=== PATIENT | female | born 1965 | race Caucasian/White ===

== ENCOUNTER 2021-06-22 13:47 | Outpatient (CLI) | payer BC ==
[2021-06-22 14:39] LABS: Bilirubin Neg (Negative); Blood, Urine 25 (Negative); Clarity Clear (Clear); Glucose, Urine (Dipstick) Normal (Negative); Ketone, Urine Negative (Negative); Leukocyte 25 (Negative); Nitrite Negative (Negative); Protein, Urine (Dipstick) Negative (Neg-Trace); Specific Gravity, Urine 1.015 (1.002-1.036); Urobilinogen Normal mg/dL (Less than 2)
[2021-06-22 14:41] LABS: Hemoglobin 13.6 g/dL (12.0-15.5); Mean Corpuscular HGB CONC 33.2 g/dL (32.0-36.0); Mean Corpuscular Hemoglobin 30.1 pg (27.0-33.0); Mean Corpuscular Volume 90.7 fl (81.6-98.3); Mean Platelet Volume 10.9 fl (7.4-10.4); Platelet Count 203 10x3/uL (150-450); RBC Distribution Width 12.7 % (11.5-14.5); Red Blood Cell (RBC) Count 4.52 10x6/uL (3.90-5.03); White Blood Cell (WBC) Count 9.2 10x3/uL (3.5-10.5)
[2021-06-24 08:53] LABS: SARS-CoV-2 PCR by NAA Not Detected (NotDetected)
== END 2021-06-22 13:48 | disposition home or self-care (01) ==
LOC: CSHLAB 13:47
PROVIDERS: ATTEND Obstetrics & Gynecology
DX: Z01.812 Encounter for preprocedural laboratory examination (principal); Z20.822 Contact with and (suspected) exposure to COVID-19; N81.6 Rectocele; N94.10 Unspecified dyspareunia
CPT/HCPCS: 81003; 85027; U0003; U0005

== ENCOUNTER 2021-06-25 05:45 | Observation (INO) | payer BC ==
[2021-06-15 14:24] VITALS: BMI 29.5
[2021-06-25] MEDS ORDERED: Bupivacaine 0.25% HCL 30 ML VIAL ONE (06:30)
[2021-06-25] MEDS ORDERED: EPINEPHrine 1 MG/ML AMP ONE ×2 (06:31→09:07)
[2021-06-25] MEDS ORDERED: Bupivacaine PF 0.5% 30 ML VIAL ONE ×2 (06:31→09:08)
[2021-06-25] MEDS ORDERED: Lidocaine 1% MPF 2 ML VIAL ONE (06:31)
[2021-06-25] MEDS ORDERED: Neomycin-Polymyxin 1 ML AMP ONE (06:32)
[2021-06-25] MEDS ORDERED: Midazolam HCl 2 mg/2 ml Vial ONE (06:33)
[2021-06-25] MEDS ORDERED: PROPOFOL 20 ML ONE (06:33)
[2021-06-25] MEDS ORDERED: Fentanyl 250 MCG/5 ML VIAL ONE (06:33)
[2021-06-25] MEDS ORDERED: Rocuronium Bromide 10 MG/ML (10ML VIAL) ONE (06:36)
[2021-06-25] MEDS ORDERED: Dexamethasone 4 mg/ml Vial ONE (06:36)
[2021-06-25] MEDS ORDERED: Ondansetron PF 4 MG/2 ML Vial ONE (06:36)
[2021-06-25] MEDS ORDERED: Lidocaine 1% PF 5 ML VIAL ONE (06:36)
[2021-06-25] MEDS ORDERED: Sodium Chloride 0.9% 100 ML ONE (06:59)
[2021-06-25] MEDS ORDERED: ePHEDrine Sulfate 50 MG/10 ML VIAL ONE (07:27)
[2021-06-25] MEDS ORDERED: Phenylephrine 10 MG/ML VIAL ONE (07:34)
[2021-06-25] MEDS ORDERED: Phenylephrine 40 MG/NS 250 ML 0 ML ONE (07:35)
[2021-06-25] MEDS ORDERED: Ketorolac Tromethamine 30 MG/ML VIAL ONE (10:50)
[2021-06-25] MEDS ORDERED: Fentanyl 100 MCG/2 ML VIAL ONE (10:58)
[2021-06-25] MEDS ORDERED: Promethazine HCl 25 MG/ML VIAL ONE (11:06)
[2021-06-25] MEDS ORDERED: Morphine 2 MG/ML VIAL SLOW IVP PRN (11:50)
[2021-06-25] MEDS ORDERED: diphenhydrAMINE 25 MG CAP PO PRN (11:50)
[2021-06-25] MEDS ORDERED: Ondansetron PF 4 MG/2 ML Vial IVP PRN (11:50)
[2021-06-25] MEDS ORDERED: Bisacodyl 10 MG SUPP PR PRN (11:50)
[2021-06-25] MEDS ORDERED: Simethicone Chewable 80 MG TAB PO PRN (11:50)
[2021-06-25] MEDS ORDERED: Zolpidem Tartrate 5 MG TAB PO PRN (11:50)
[2021-06-25] MEDS ORDERED: Acetaminophen 325 MG TAB PO PRN (11:50)
[2021-06-25] MEDS ORDERED: Morphine 4 MG/ML VIAL ONE (12:01)
[2021-06-25] MEDS: Lactated Ringer's 1,000 ML IV SCH ×3 (12:04→23:41)
[2021-06-25] MEDS ORDERED: Morphine 4 MG/ML VIAL SLOW IVP PRN (12:30)
[2021-06-25] MEDS: Morphine 4 MG/ML VIAL SLOW IVP PRN ×3 (12:40→17:11)
[2021-06-25] MEDS: Ketorolac Tromethamine 30 MG/ML VIAL IVP SCH ×2 (17:10→23:37)
[2021-06-25] MEDS: HYDROcodone/Acetaminophen 10/325 mg Tablet PO PRN (20:25)
[2021-06-26] MEDS: HYDROcodone/Acetaminophen 10/325 mg Tablet PO PRN ×3 (04:31→12:28)
[2021-06-26 05:30] LABS: Hemoglobin 10.4 g/dL (12.0-15.5); Mean Corpuscular HGB CONC 33.3 g/dL (32.0-36.0); Mean Corpuscular Hemoglobin 30.3 pg (27.0-33.0); Mean Platelet Volume 11.1 fl (7.4-10.4); Platelet Count 182 10x3/uL (150-450); RBC Distribution Width 12.9 % (11.5-14.5); Red Blood Cell (RBC) Count 3.43 10x6/uL (3.90-5.03); White Blood Cell (WBC) Count 9.9 10x3/uL (3.5-10.5)
[2021-06-26] MEDS: Ketorolac Tromethamine 30 MG/ML VIAL IVP SCH ×2 (06:07→12:28)
[2021-06-26 08:23] VITALS: BP 115/57; TEMP 98.4
== END 2021-06-26 12:58 | disposition home or self-care (01) ==
LOC: CSHSDC 05:45 → CSHPED 11:48
PROVIDERS: ADMIT Obstetrics & Gynecology; ATTEND Obstetrics & Gynecology
PROC: 0UT24ZZ Resection of Bilateral Ovaries, Percutaneous Endoscopic Approach (ICD-10-PCS; principal; 2021-06-25)
PROC: 0UT74ZZ Resection of Bilateral Fallopian Tubes, Percutaneous Endoscopic Approach (ICD-10-PCS; 2021-06-25)
PROC: 0JQC0ZZ Repair Pelvic Region Subcutaneous Tissue and Fascia, Open Approach (ICD-10-PCS; 2021-06-25)
PROC: 0WQNXZZ Repair Female Perineum, External Approach (ICD-10-PCS; 2021-06-25)
DX: N81.6 Rectocele (principal); N94.10 Unspecified dyspareunia; N73.6 Female pelvic peritoneal adhesions (postinfective); N83.292 Other ovarian cyst, left side; N83.291 Other ovarian cyst, right side; N83.8 Other noninflammatory disorders of ovary, fallopian tube and broad ligament; I10 Essential (primary) hypertension; E03.9 Hypothyroidism, unspecified; K21.9 Gastro-esophageal reflux disease without esophagitis; Z79.899 Other long term (current) drug therapy
CPT/HCPCS: 36415; 51798; 85027; 88305; 96374; 96375; 96376; C1713; C1776; G0378; J0171; J1100; J1885; J2250; J2270; J2370; J2405; J2550; J2704; J3010; J3490; J7120; S0020

== ENCOUNTER 2023-07-04 13:57 | Outpatient (CLI) | payer BC | END 2023-07-04 13:58 | disposition home or self-care (01) | LOC: CSHMAMMO 13:57 | PROVIDERS: ATTEND Obstetrics & Gynecology | DX: Z12.31 Encounter for screening mammogram for malignant neoplasm of breast (principal); Z13.820 Encounter for screening for osteoporosis; N63.20 Unspecified lump in the left breast, unspecified quadrant; M85.851 Other specified disorders of bone density and structure, right thigh; M85.852 Other specified disorders of bone density and structure, left thigh | CPT/HCPCS: 77063; 77067; 77080 ==

== ENCOUNTER 2023-07-11 08:02 | Outpatient (CLI) | payer BC | END 2023-07-11 08:03 | disposition home or self-care (01) | LOC: CSHMAMMO 08:02 | PROVIDERS: ATTEND Obstetrics & Gynecology | DX: N63.25 Unspecified lump in the left breast, overlapping quadrants (principal); N60.02 Solitary cyst of left breast | CPT/HCPCS: G0279 ==